=== PATIENT | male | born 1965 | race Two or more races ===

== ENCOUNTER 2024-08-08 20:12 | Inpatient (IN) | payer MEDICAID, OTHER ==
[~2024-08-08] VITALS: Ht 185.4 cm; Wt 97.7 kg
--- NOTE | 2024-08-08 21:24 | ED.PDOC ---
History of Present Illness HPI Comments 59 y/o M is BIBA as a transfer from [facility]) for higher-level of care. Patient is reported to have been arrested, last night, for domestic violence and to have had syncope and fall with head injury from ground level after standing up and becoming lightheaded in his snf cell. He was evaluated for injury at [facility], where he had a benign CT head and C- spine imaging studies, tested positive for amphetamines and methamphetamine, and found hypertensive amidst no medical history. Patient was transferred for for MRI and echocardiogram under recommendation of neurologist at facility following consult. Prior to arrival. patient was given Hydralazine, with noted improvement to blood pressure at 130/87 vs 221/10, initially. Patient c/o headache, blurry vision, and tingling sensation to his finger tips and further reports on hitting his head on the top frame of a bunk bed in his cell prior to syncope event. Denies any further associated symptoms or modifiers. Chief Complaint: Shelter Check Time Seen by MD: 20:50 Reviewed Notes: Nurses Notes, Dry Cure Worker Notes, Medications, Allergies Allergies: Coded Allergies: NO KNOWN ALLERGIES (Unverified , 08/08/24) Information Source: Patient, Law Enforcement, Transfer Record, Emergency Med Personnel Mode of Arrival: EMS Severity: Moderate Timing: Hours Duration: Since onset Prehospital treatment: 12 Lead EKG, Molecular Spectroscopist Review of Systems: REVIEW OF SYSTEMS: No fever, no chills, or fatigue HEENT: Blurry vision. No sore throat, no earache, no congestion, no neck pain. Cardiac: No chest pain. No palpitations. Lungs: No shortness of breath, no cough. GI: No nausea, no vomiting, no diarrhea, no constipation, no abdominal pain : No dysuria, frequency, or urgency. No hematuria. Musculoskeletal: No joint pain , no joint swelling, no extremity edema. Skin: No rash, no itching. Neuro: Headache, Tingling sensation to finger tips. no dizziness, no weakness Vital Signs Vital Signs Date Time Temp Pulse Resp B/P (MAP) Pulse Ox O2 Delivery O2 Flow Rate FiO2 08/08/24 20:22 97.6 74 16 130/87 (101) 94 97.6 Physical Exam General: Awake, alert and oriented. No acute distress. Skin: Skin in warm, dry and intact without rashes or lesions. HEENT: The head is normocephalic and atraumatic. Conjunctivae are clear without exudates or hemorrhage. Sclera is non-icteric. Neck: Normal range of motion. No JVD. Cardiac: Regular rate Respiratory: No signs of respiratory distress. No Stridor. Extremities: Upper and lower extremities are atraumatic in appearance without deformity. Neurological: The patient is awake, alert and oriented to person, place, and time with normal speech. Speech is clear. There is no facial asymmetry. Psychiatric: Appropriate mood and affect. Good judgement and insight. Was a procedure done? Was a procedure done?: No Differential Dx Considerations may include: hypertensive emergency, hypertensive new onset, medication noncompliance, substance abuse and dependency, closed head injury, amongst others X-Ray, Labs, Meds, VS Vital Signs Date Time Temp Pulse Resp B/P (MAP) Pulse Ox O2 Delivery O2 Flow Rate FiO2 08/08/24 20:22 97.6 74 16 130/87 (101) 94 97.6 Lab Test 08/08/24 22:22 Range/Units White Blood Count 7.4 4.4-10.8 10^3/uL Red Blood Count 5.61 4.5-5.90 10^6/uL Hemoglobin 16.9 13.5-17.5 g/dL Hematocrit 49.7 41.0-53.0 % Mean Corpuscular Volume 88.7 80.0-100.0 fL Mean Corpuscular Hemoglobin 30.2 28.0-32.0 pg Mean Corpuscular Hemoglobin Concent 34.1 32.0-36.0 g/dL Red Cell Distribution Width 16.6 H 11.8-14.3 % Platelet Count 246 140-450 10^3/uL Mean Platelet Volume 7.8 6.9-10.8 fL Neutrophils (%) (Auto) 66.1 37.0-80.0 % Lymphocytes (%) (Auto) 25.5 10.0-50.0 % Monocytes (%) (Auto) 6.5 0.0-12.0 % Eosinophils (%) (Auto) 1.5 0.0-7.0 % Basophils (%) (Auto) 0.4 0.0-2.0 % Neutrophils # (Auto) 4.9 1.6-8.6 10 ^3/uL Lymphocytes # (Auto) 1.9 0.4-5.4 10 ^3/uL Monocytes # (Auto) 0.5 0-1.3 10 ^3/uL Eosinophils # (Auto) 0.1 0-0.8 10 ^3/uL Basophils # (Auto) 0 0-0.2 10 ^3/uL Nucleated Red Blood Cells 0.0 % Prothrombin Time 10.8 9.3-11.8 sec Prothrombin Time INR 1.02 0.9-1.15 Activated Partial Thromboplast Time 27.3 24.5-34.5 SEC Sodium Level 138 136-145 mmol/L Potassium Level 4.3 3.5-5.1 mmol/L Chloride Level 105 98-107 mmol/L Carbon Dioxide Level 24 20-31 mmol/L Anion Gap 9 5-15 Blood Urea Nitrogen 18 9-23 mg/dL Creatinine 0.88 0.700-1.30 mg/dL Glomerular Filtration Rate Calc 98 >90 mL/min BUN/Creatinine Ratio 20.5 H 10.0-20.0 Serum Glucose 99 74-106 mg/dL Calcium Level 9.2 8.7-10.4 mg/dL Troponin I High Sensitivity 21 </=54 ng/L Thyroid Stimulating Hormone (TSH) 6.25 H 0.55-4.78 uIU/mL Time of 1ST Reevaluation: 21:20 Reevaluation 1ST: Unchanged Patient Education/Counseling: Need For Follow Up Family Education/Counseling: No Family Present Departure 1 Departure Time of Disposition: 21:25 Impression: Primary Impression: Syncope Additional Impression: Hypertension Disposition: 09 ADMITTED INPATIENT Condition: Stable Comments 59-year-old male transfer from [facility] for admission for syncope , hypertension and evaluation of findings of old CVA on CT head. Patient admitted to hospitalist service for further treatment, evaluation and monitoring. Critical Care Note Critical Care Time?: No Stability Stability form required: No Heart Score Heart Score: Heart Score Response (Comments) Value History N/A 0 EKG N/A 0 Age N/A 0 Risk Factors N/A 0 Troponin N/A 0 Total 0 I personally scribed for ROHIT SALDANA MD ([email or web address]) on 08/08/24 at 21:24. Electronically submitted by Fabiano Vigil ([email or web address]). ROHIT SALDANA MD August 08, 2024 21:24
[2024-08-08 23:11] LABS: Basophils # (auto) 0 10 ^3/uL (0-0.2); Basophils % (auto) 0.4 % (0.0-2.0); Eosinophils # (auto) 0.1 10 ^3/uL (0-0.8); Eosinophils % (auto) 1.5 % (0.0-7.0); Hematocrit 49.7 % (41.0-53.0); Hemoglobin 16.9 g/dL (13.5-17.5); Lymphocytes # (auto) 1.9 10 ^3/uL (0.4-5.4); Lymphocytes % (auto) 25.5 % (10.0-50.0); Mean Corpuscular Hemoglobin 30.2 pg (28.0-32.0); Mean Corpuscular Hgb Conc. 34.1 g/dL (32.0-36.0); Mean Corpuscular Volume 88.7 fL (80.0-100.0); Monocytes # (auto) 0.5 10 ^3/uL (0-1.3); Monocytes % (auto) 6.5 % (0.0-12.0); Neutrophils # (auto) 4.9 10 ^3/uL (1.6-8.6); Neutrophils % (auto) 66.1 % (37.0-80.0); Platelet Count (auto) 246 10^3/uL (140-450); Red Blood Cells 5.61 10^6/uL (4.5-5.90); Red Cell Distribution Width 16.6 % (11.8-14.3); White Blood Cell 7.4 10^3/uL (4.4-10.8)
[2024-08-08 23:23] LABS: Chloride 105 mmol/L (98-107); Potassium 4.3 mmol/L (3.5-5.1); Sodium 138 mmol/L (136-145)
[2024-08-08 23:24] LABS: Anion Gap 9 (5-15); Calcium 9.2 mg/dL (8.7-10.4); Carbon Dioxide 24 mmol/L (20-31)
[2024-08-08 23:29] LABS: BUN/Creatinine Ratio 20.5 (10.0-20.0); Blood Urea Nitrogen 18 mg/dL (9-23); Glucose 99 mg/dL (74-106)
[2024-08-09] MEDS ORDERED: MORPHINE SULFATE INJ 2 MG/ml SYRG IV PRN
[2024-08-09] MEDS ORDERED: NITROGLYCERIN 0.4 MG SL TAB SL PRN
--- NOTE | 2024-08-09 00:37 | DVHHP2 ---
History of Present Illness History of Present Illness Patient is 59-year-old male with past medical history of hypertension but not on any medication who was brought to the hospital from [facility] to strict for further evaluation of syncopal episode with brain MRI and echocardiogram. Patient presented to [facility] with syncopal episode after he stood up from bottom bunk and he did hit his head. Immediately after that he lost consciousness for few minutes, no seizure activity observed, patient regained consciousness, brought to the hospital for further evaluation. Reviewed medical records from [facility]. Reviewed CT scan which showed no acute intracranial abnormality, chronic microvascular changes, no mass. Patient was also evaluated by tele Neurology, recommended further evaluation is MRI brain and MRA head and neck and echocardiogram. At the time of evaluation patient did not have any symptoms, no fever, no chills, no dizziness, chest pain, any other symptoms. Patient will be admitted to the hospital for further evaluation of syncopal episode. Past medical history: Hypertension, CVA Surgical history: TBI fracture repair Home medication: None Allergy: None Personal history: Patient urine drug screen came positive for methamphetamine and amphetamine. However patient is denying all drug use, nonsmoking. Review of Systems Constitutional: No: Fever, Chills, Sweats, Weakness, Malaise, Other Eyes: No: Pain, Vision change, Conjunctivae inflammation, Eyelid inflammation, Other, Redness ENT: No: Ear pain, Ear discharge, Nose pain, Nose discharge, Nose congestion, Mouth pain, Mouth swelling, Throat pain, Throat swelling, Other Respiratory: No: Cough, Dry, Shortness of breath, SOB with excertion, Wheezing, Hemoptysis, Pleuritic Pain, Sputum, Wheezing, Other Cardiovascular: No: Chest Pain, Palpitations, Orthopnea, Paroxysmal Noc. Dyspnea, Edema, Lt Headedness, Other Gastrointestinal: No: Nausea, Vomiting, Abdominal Pain, Diarrhea, Constipation, Melena, Hematochezia, Other Genitourinary: No Dysuria, No Frequency, No Incontinence, No Hematuria, No Retention, No Other Musculoskeletal: No: other, neck pain, shoulder pain, arm pain, back pain, hand pain, leg pain, foot pain Skin: No: Rash, Lesions, Jaundice, Bruising, Other Neurological: No: Weakness, Numbness, Incoordination, Change in speech, Confusion, Seizures, Other Allergies: Coded Allergies: NO KNOWN ALLERGIES (Unverified , 08/08/24) Medications Current Medications Medications Dose Ordered Sig/Gayathri Route Start Time Stop Time Status Last Admin Dose Admin Nitroglycerin 0.4 mg Q5MINP PRN SL 08/09/24 00:00 Morphine Sulfate 2 mg Q30M PRN IV 08/09/24 00:00 Aspirin 81 mg DAILY PO 08/09/24 10:00 Exam Vital Signs Vital Signs Date Time Temp Pulse Resp B/P (MAP) Pulse Ox O2 Delivery O2 Flow Rate FiO2 08/08/24 20:22 97.6 74 16 130/87 (101) 94 97.6 General Appearance: Alert, Oriented X3, Cooperative, No acute distress HEENT: Atraumatic, PERRLA, EOMI, Mucous membr. moist/pink Respiratory: Clear to auscultation, Normal air movement Cardiovascular: Regular rate, Normal S1, Normal S2, No murmurs, Gallops Abdominal: Normal bowel sounds, Soft, No tenderness, No hepatospenomegaly Extremities: No clubbing, No cyanosis, No edema, Normal pulses, No tenderness/swelling Skin: No rashes, No breakdown, No significant lesion Neuro: Normal gait, Normal speech, Strength at 5/5 X4 ext, Normal tone, Sensation intact, Cranial nerves 3-12 NL Labs/Xrays Labs Test 08/08/24 22:22 Range/Units White Blood Count 7.4 4.4-10.8 10^3/uL Red Blood Count 5.61 4.5-5.90 10^6/uL Hemoglobin 16.9 13.5-17.5 g/dL Hematocrit 49.7 41.0-53.0 % Mean Corpuscular Volume 88.7 80.0-100.0 fL Mean Corpuscular Hemoglobin 30.2 28.0-32.0 pg Mean Corpuscular Hemoglobin Concent 34.1 32.0-36.0 g/dL Red Cell Distribution Width 16.6 H 11.8-14.3 % Platelet Count 246 140-450 10^3/uL Mean Platelet Volume 7.8 6.9-10.8 fL Neutrophils (%) (Auto) 66.1 37.0-80.0 % Lymphocytes (%) (Auto) 25.5 10.0-50.0 % Monocytes (%) (Auto) 6.5 0.0-12.0 % Eosinophils (%) (Auto) 1.5 0.0-7.0 % Basophils (%) (Auto) 0.4 0.0-2.0 % Neutrophils # (Auto) 4.9 1.6-8.6 10 ^3/uL Lymphocytes # (Auto) 1.9 0.4-5.4 10 ^3/uL Monocytes # (Auto) 0.5 0-1.3 10 ^3/uL Eosinophils # (Auto) 0.1 0-0.8 10 ^3/uL Basophils # (Auto) 0 0-0.2 10 ^3/uL Nucleated Red Blood Cells 0.0 % Sodium Level 138 136-145 mmol/L Potassium Level 4.3 3.5-5.1 mmol/L Chloride Level 105 98-107 mmol/L Carbon Dioxide Level 24 20-31 mmol/L Anion Gap 9 5-15 Blood Urea Nitrogen 18 9-23 mg/dL Creatinine 0.88 0.700-1.30 mg/dL Glomerular Filtration Rate Calc 98 >90 mL/min BUN/Creatinine Ratio 20.5 H 10.0-20.0 Serum Glucose 99 74-106 mg/dL Calcium Level 9.2 8.7-10.4 mg/dL Troponin I High Sensitivity 21 </=54 ng/L Assessment/Plan Assessment/Plan Syncopal episode of unknown etiology rule, out pathological etiology, including structural abnormality of heart, carotid artery stenosis, rule out stroke Uncontrolled Hypertension History of CVA Methamphetamine abuse Abnormal EKG , RBBB Subclinical hypothyroidism Plan/recommendation -continue aspirin 81 mg p.o. daily -reviewed CT scan of head done on0 08/08/2024. No acute intracranial process. Chronic ischemic changes. Can not be done at [facility]. -neurology consultation was done and [facility], recommended MRI of head and MRA of head and neck. plan for MRA head and neck -EKG showed RBBB, further evaluation with echocardiogram -orthostatic vitals, TSH, free T4, urinalysis and drug screen. -chest x-ray no acute intrathoracic abnormality -IV fluids with normal saline 75 mL/hour -uncontrolled hypertension: Continue losartan 25 mg p.o. daily. -PUD prophylaxis with Protonix -DVT prophylaxis with Lovenox Goals of care discussed greater than 25 minutes, full code status Plan discussed with Dr. Stevens Plan discussed with: Patient, Other My Orders Orders - CHRISTIAN CLAROS Procedure Category Date Status Time Code Status CODE 08/08/24 Transmitted 23:52 Admit ADMIT 08/08/24 Transmitted 23:52 Code Status CODE 08/08/24 Transmitted 23:52 Vital Signs [facility] 08/08/24 In Process 23:52 Review Orders With PENNIE 08/08/24 In Process Adm.Md 23:52 Notify Md Of Changes [facility] 08/08/24 In Process From Base 23:52 Advance Directive PENNIE 08/08/24 In Process 23:52 Patient Condition ORDERS 08/08/24 Transmitted 23:52 Allergies PENNIE 08/08/24 In Process 23:52 Nitroglycerin PHA 08/09/24 In Process Sublingual (Ntrostat 00:00 Morphine Sulfate PHA 08/09/24 In Process Injection 00:00 Notify Md Of Changes [facility] 08/08/24 In Process From Base 23:52 Motorized Squad Captain For [facility] 08/08/24 In Process 24 Hours 23:52 Emergency Dysrhythmia [facility] 08/08/24 In Process Protocol 23:52 Rhythm Strips Once [facility] 08/08/24 In Process Every Shift 23:52 Echo 2d Mode Cardiac US 08/09/24 Logged DOP 00:05 Thyroid Stimulating LAB 08/09/24 In Process Hormone 00:05 Orthostatic Vital ORDERS 08/09/24 Transmitted Signs 00:05 Chest Xray 1 View XY 08/09/24 Logged 00:05 Mra Angio Head Brain MRI 08/09/24 Logged 00:05 Mra Angio Of Neck MRI 08/09/24 Logged 00:05 Drug Screen LAB 08/09/24 Logged 00:05 Urinalysis LAB 08/09/24 Logged 00:16 Aspirin Tablet PHA 08/09/24 In Process 10:00 PTPTT LAB 08/09/24 In Process 00:19 Date of Service: August 08, 2024 Billing Provider: CHRISTIAN CLAROS Common Visit Codes: 93961-[id number] INP/OBS CARE (HIGH) Secondary Visit Codes: 53171-GSDZAGNP CARE PLAN 30 MINUTES CHRISTIAN CLAROS August 09, 2024 00:37
[2024-08-09 00:47] LABS: INR 1.02 (0.9-1.15); Partial Thromboplastin Time 27.3 SEC (24.5-34.5); Prothrombin Time 10.8 sec (9.3-11.8)
--- NOTE | 2024-08-09 03:26 | DVH ---
Examination: CXR1 CLINICAL INDICATION: syncope COMPARISON: None. TECHNIQUE: Frontal radiograph of the chest was obtained. FINDINGS: Limited evaluation as the patient is in rotation. Lungs are clear and well expanded with no pulmonary infiltrate or pleural effusion. There is no pneumothorax. The cardiomediastinal silhouette is within normal limits. No acute osseous abnormality is seen. IMPRESSION: 1. No acute cardiopulmonary disease is seen. 2. Advised further evaluation with CT chest without contrast if clinically indicated. Electronically Signed 08/09/2024 03:24 Paco Mahan
[2024-08-09 05:16] VITALS: PULSE 61; RESP 13; O2SAT 94
[2024-08-09] MEDS: LOSARTAN POTASSIUM 25 MG TAB PO ONE (07:52)
[2024-08-09] MEDS: SODIUM CHLORIDE 0.9% 1,000 ML IV SCH (07:57)
[2024-08-09] MEDS: ASPirin 81 mg TAB PO SCH (10:47)
[2024-08-09] MEDS: LORazepam 0.5 MG TAB PO ONE (13:00)
[2024-08-09] MEDS: amLODIPine BESYLATE 5 MG TAB PO ONE (14:45)
[2024-08-09] MEDS: LORazepam 2MG/ML-1ML VIAL IV ONE (16:08)
--- NOTE | 2024-08-09 16:56 | DVH ---
MRA NECK CLINICAL HISTORY: FALL TECHNIQUE: MRA neck without intravenous contrast. 3D D image post processing was performed on a dedicated workstation and images were is for interpreta tion and reporting. FINDINGS: There is absence of flow signal in the proximal 3rd of the right vertebral artery. The left vertebral artery demonstrates appropriate flow signal. The bilateral common common carotid and internal carotid arteries demonstrate appropriate flow signa l without hemodynamically significant stenosis.. IMPRESSION: 1. Absence of flow signal in the proximal 3rd of the right vertebral artery likely related to proxima l occlusion. Further evaluation with CT angiography is recommended. 2. No hemodynamically significant stenosis in the cervical segments of the carotid and left vertebral arteries. HS:Y
--- NOTE | 2024-08-09 17:44 | DVH ---
EXAM: MRI MRA ANGIO HEAD BRAIN HISTORY: FALL COMPARISON: None TECHNIQUE: This study was performed on a 1.5 Christine closed magnet. 3D [id number] study in the axi al plane with multiple angiographic reconstructions of the samish of Hernández. No intravenous contrast was administered. FINDINGS: The bilateral intracranial internal carotid arteries, anterior cerebral, middle cerebral and posterio r cerebral arteries are patent. The basilar artery is patent. No aneurysm or vascular malformation noted. IMPRESSION: 1. Unremarkable brain MR angiogram.
[2024-08-09 19:30] VITALS: PULSE 59; RESP 12; O2SAT 97
[2024-08-10 07:45] VITALS: PULSE 75; RESP 16; O2SAT 98
[2024-08-10 07:47] LABS: Urine Bacteria None Seen /hpf (None Seen)
[2024-08-10 07:52] LABS: Urine Blood Negative /uL (Negative); Urine Clarity Clear (Clear); Urine Color Colorless (Yellow); Urine Protein, UAD Negative (Negative); Urine Specific Gravity 1.006 (1.001-1.035); Urine Squamous Epithelial Cell None Seen /hpf (<5); Urine Urobilinogen Normal (Negative)
[2024-08-10 08:07] LABS: Amphetamine Screen, Urine Pos (NEGATIVE); Barbiturate Scree,Urine Neg (NEGATIVE); Benzodiazephine Screen, Urine Neg (NEGATIVE); Cannabinoid Screen, Urine Neg (NEGATIVE); Cocaine Screen, Urine Neg (NEGATIVE); Opiate Scree,Urine Neg (NEGATIVE); Phencyclidine Screen, Urine Neg (NEGATIVE)
[2024-08-10 08:15] LABS: Basophils # (auto) 0 10 ^3/uL (0-0.2); Basophils % (auto) 0.5 % (0.0-2.0); Eosinophils # (auto) 0.1 10 ^3/uL (0-0.8); Eosinophils % (auto) 1.6 % (0.0-7.0); Hematocrit 49.1 % (41.0-53.0); Hemoglobin 16.4 g/dL (13.5-17.5); Lymphocytes # (auto) 1.6 10 ^3/uL (0.4-5.4); Lymphocytes % (auto) 27.8 % (10.0-50.0); Mean Corpuscular Hemoglobin 29.8 pg (28.0-32.0); Mean Corpuscular Hgb Conc. 33.4 g/dL (32.0-36.0); Mean Corpuscular Volume 89.2 fL (80.0-100.0); Monocytes # (auto) 0.4 10 ^3/uL (0-1.3); Monocytes % (auto) 6.9 % (0.0-12.0); Neutrophils # (auto) 3.7 10 ^3/uL (1.6-8.6); Neutrophils % (auto) 63.2 % (37.0-80.0); Nucleated Red Blood Cells % 0.1 %; Platelet Count (auto) 193 10^3/uL (140-450); Red Cell Distribution Width 16.8 % (11.8-14.3); White Blood Cell 5.9 10^3/uL (4.4-10.8)
[2024-08-10 08:35] LABS: Alanine Aminotransferase 12 U/L (7-40); Albumin 3.8 g/dL (3.2-4.8); Alkaline Phosphatase 54 U/L (46-116); Anion Gap 6 (5-15); Bilirubin, Total 0.8 mg/dL (0.2-1.0); Blood Urea Nitrogen 12 mg/dL (9-23); Calcium 9.2 mg/dL (8.7-10.4); Carbon Dioxide 26 mmol/L (20-31); Glucose 100 mg/dL (74-106); Potassium 4.3 mmol/L (3.5-5.1); Sodium 140 mmol/L (136-145); Total Protein 6.6 g/dL (5.7-8.2)
[2024-08-10 08:37] LABS: Aspartate Aminotransferase 12 U/L (13-40); Chloride 108 mmol/L (98-107)
[2024-08-10] MEDS: LOSARTAN POTASSIUM 25 MG TAB PO SCH (09:36)
[2024-08-10] MEDS: amLODIPine BESYLATE 5 MG TAB PO SCH (09:36)
[2024-08-10 13:30] VITALS: BP 164/93; PULSE 71; RESP 20; TEMP 97.7; O2SAT 95
[2024-08-10] MEDS ORDERED: AML5T PO (14:17)
[2024-08-10] MEDS ORDERED: LOS25T PO (14:17)
[2024-08-10] MEDS ORDERED: ASPI-325 PO (14:17)
[2024-08-10 14:58] VITALS: BP 164/93; PULSE 71; RESP 20; TEMP 97.7; O2SAT 95
--- NOTE | 2024-08-10 15:55 | DVHSR ---
APPROVED REPORT EXAM: Two-dimensional and M-mode echocardiogram with Doppler and color Doppler. Blood Pressure: 152/86 mmHg INDICATION Syncope RISK FACTORS Height: 6'1", Weight: 215 DIMENSIONS LVDd5.4 (3.8-5.7cm)LA (2D)3.9 (1.9-4.0cm)Aortic Root3.9 (2.0-3.7cm) LVDs3.6 (2.5-4.0cm)LA (MM) (1.9-4.0cm)Aortic Cusp Exc2.0 (1.5-2.0cm) EF (%) 60.0 (55-70%)Rt. Atrium3.8 (1.9-4.0cm)Asc. Aorta cm IVSd1.2 (0.7-1.1cm)RV (D)4.6 (1.8-2.4cm) PWd1.1 (0.7-1.1cm) Mitral Valve MitralMitral Stenosis E wave0.73m/sMV Mean GR.mmHg A wave0.91m/sMV Peak GR.mmHg E/A ratio0.82D MVAcm2 DECEL [id number] 1/2 [place] Aortic Valve Aortic ValveAortic Stenosis V10.99m/[place] Mean GR.5mmHg V21.46m/[place] Peak GR.9mmHg LVOT Diameter2.4 (1.8-2.4cm)Doppler AVA3.07cm2 Pulmonic Valve V21.01m/s Tricuspid Valve TR Velocity2.41m/s [id number] Conclusion Sinus rhythm. Concentric LVH with left atrial enlargement. Valves are normal. EF of 60% with normal RV function. Mild aortic insufficiency. Mild tricuspid regurgitation. No pericardial effusion masses or vegetations.
[2024-08-10 16:11] VITALS: BP 141/75; PULSE 88; RESP 18; TEMP 36.5; O2SAT 96
--- NOTE | 2024-08-10 18:43 | DVHDS2 ---
Discharge Summary Date of Admission August 08, 2024 at 23:52 Date of Discharge: August 10, 2024 Labs/Diagnostic Data: Laboratory Results Test 08/10/24 08:03 08/10/24 07:30 08/08/24 22:22 White Blood Count 5.9 10^3/uL (4.4-10.8) Red Blood Count 5.50 10^6/uL (4.5-5.90) Hemoglobin 16.4 g/dL (13.5-17.5) Hematocrit 49.1 % (41.0-53.0) Mean Corpuscular Volume 89.2 fL (80.0-100.0) Mean Corpuscular Hemoglobin 29.8 pg (28.0-32.0) Mean Corpuscular Hemoglobin Concent 33.4 g/dL (32.0-36.0) Red Cell Distribution Width 16.8 % (11.8-14.3) Platelet Count 193 10^3/uL (140-450) Mean Platelet Volume 7.2 fL (6.9-10.8) Neutrophils (%) (Auto) 63.2 % (37.0-80.0) Lymphocytes (%) (Auto) 27.8 % (10.0-50.0) Monocytes (%) (Auto) 6.9 % (0.0-12.0) Eosinophils (%) (Auto) 1.6 % (0.0-7.0) Basophils (%) (Auto) 0.5 % (0.0-2.0) Neutrophils # (Auto) 3.7 10 ^3/uL (1.6-8.6) Lymphocytes # (Auto) 1.6 10 ^3/uL (0.4-5.4) Monocytes # (Auto) 0.4 10 ^3/uL (0-1.3) Eosinophils # (Auto) 0.1 10 ^3/uL (0-0.8) Basophils # (Auto) 0 10 ^3/uL (0-0.2) Nucleated Red Blood Cells 0.1 % Sodium Level 140 mmol/L (136-145) Potassium Level 4.3 mmol/L (3.5-5.1) Chloride Level 108 mmol/L (98-107) Carbon Dioxide Level 26 mmol/L (20-31) Anion Gap 6 (5-15) Blood Urea Nitrogen 12 mg/dL (9-23) Creatinine 0.92 mg/dL (0.700-1.30) Glomerular Filtration Rate Calc 95 mL/min (>90) BUN/Creatinine Ratio 13.0 (10.0-20.0) Serum Glucose 100 mg/dL (74-106) Calcium Level 9.2 mg/dL (8.7-10.4) Total Bilirubin 0.8 mg/dL (0.2-1.0) Aspartate Amino Transferase (AST) 12 U/L (13-40) Alanine Aminotransferase (ALT) 12 U/L (7-40) Alkaline Phosphatase 54 U/L (46-116) Total Protein 6.6 g/dL (5.7-8.2) Albumin 3.8 g/dL (3.2-4.8) Urine Color Colorless (Yellow) Urine Clarity Clear (Clear) Urine pH 6.0 (5.0-9.0) Urine Specific Plato 1.006 (1.001-1.035) Urine Protein Negative (Negative) Urine Ketones Negative (Negative) Urine Blood Negative /uL (Negative) Urine Nitrite Negative (Negative) Urine Bilirubin Negative (Negative) Urine Urobilinogen Normal mg/dL (Negative) Urine Leukocyte Esterase Negative /uL (Negative) Urine RBC 1 /hpf (0 - 3) Urine Microscopic WBC /HPF (0-3) Urine Squamous Epithelial Cells None seen /hpf (<5) Urine Bacteria None seen /hpf (None Seen) Urine Glucose Normal mg/dL (Normal) Urine Opiates Screen Neg (NEGATIVE) Urine Fentanyl Screen Neg (NEGATIVE) Urine Barbiturates Screen Neg (NEGATIVE) Urine Phencyclidine Screen Neg (NEGATIVE) Urine Amphetamines Screen Pos (NEGATIVE) Urine Benzodiazepines Screen Neg (NEGATIVE) Urine Cocaine Screen Neg (NEGATIVE) Urine Cannabinoids Screen Neg (NEGATIVE) Prothrombin Time 10.8 sec (9.3-11.8) Prothrombin Time INR 1.02 (0.9-1.15) Activated Partial Thromboplast Time 27.3 SEC (24.5-34.5) Troponin I High Sensitivity 21 ng/L (</=54) Thyroid Stimulating Hormone (TSH) 6.25 uIU/mL (0.55-4.78) Free Thyroxine (T4) Calculated 0.92 ng/dL (0.89-1.76) Other Laboratory Tests 08/10/24 08:03 Brief Hx & Hospital Course: Patient is 59-year-old male with past medical history of hypertension but not on any medication who was brought to the hospital from [facility] to strict for further evaluation of syncopal episode with brain MRI and echocardiogram. Patient presented to [facility] with syncopal episode after he stood up from bottom bunk and he did hit his head. Immediately after that he lost consciousness for few minutes, no seizure activity observed, patient regained consciousness, brought to the hospital for further evaluation. Reviewed medical records from [facility]. Reviewed CT scan which showed no acute intracranial abnormality, chronic microvascular changes, no mass. Patient was also evaluated by tele Neurology, recommended further evaluation is MRI brain and MRA head and neck and echocardiogram. At the time of evaluation patient did not have any symptoms, no fever, no chills, no dizziness, chest pain, any other symptoms. Patient will be admitted to the hospital for further evaluation of syncopal episode. BP controlled MRI negative for any stroke Condition at Discharge: Good Final Diagnosis/Problems List Uncontrolled hypertension. Discharge Disposition: Correction Discharge Instruct/Medications Diet: Regular Activity: No Restrictions, As Tolerated Follow Up/Referral: PCP in 7 days Medications: amlodipine, atenolol Discharge Statement: "Patient was advised to return to the ER or call 911 if any headaches, dizziness, shortness of breath, chest pain, abdominal pain, bleeding, fevers, or worsening of medical condition. Patient was counseled about treatment plan, medications, possible side effects, patientverbalized understanding. All questions were answered to the best of my ability. This discharge took greater then 30 minutes in planning, reviewing documentation, counseling the patient, and discussing with other team members." ASSESSMENT ASSESSMENT Assessment Uncontrolled hypertension. Date of Service: August 10, 2024 Billing Provider: MILE CORTES MD Common Visit Codes: 41172-NSC/OBS DISCH DAY >30min MILE CORTES MD August 10, 2024 18:42
== END 2024-08-10 17:00 | DRG 199 ==
LOC: ER 20:12 → EDBD 20:12 → OVERFLOW 23:52 → EEVIPCON 23:52 → TELE-EAST 08-10 13:24
PROVIDERS: ADMIT Hospitalist; ATTEND Hospitalist
DX: I16.0 Hypertensive urgency (principal); E03.8 Other specified hypothyroidism; I10 Essential (primary) hypertension; F15.10 Other stimulant abuse, uncomplicated; I45.10 Unspecified right bundle-branch block; Z86.73 Personal history of transient ischemic attack (TIA), and cerebral infarction without residual deficits; Z79.899 Other long term (current) drug therapy; Z79.82 Long term (current) use of aspirin
CPT/HCPCS: 36415; 70545; 70547; 71045; 80048; 80053; 80307; 81001; 84439; 84443; 84484; 85025; 85610; 85730; 93306; G0378